=== PATIENT | male | born 1990 | race Caucasian/White ===

== ENCOUNTER → 2016-08-30 | Outpatient (CLI) | payer OTHER ==
--- NOTE | 2016-08-30 10:56 | DIAGNOSTIC IMAGING REPORT ---
BONY ORBITS 3 VIEWS CLINICAL HISTORY: MRI clearance. FINDINGS: 3 views of the bony orbits are obtained. No prior studies are available for comparison at the time of dictation. There is no radiodense/metallic foreign body identified in the region of the bony orbits. The bony orbits appear intact. The paranasal sinuses are clear as visualized. The mastoid air cells appear well-pneumatized. The imaged calvarium appears maintained. IMPRESSION: There is no radiodense/metallic foreign body identified in the region of the bony orbits. Electronically signed by: Wilbur Skinner M.D. 08/30/2016 10:54 AM Dictated Date/Time: 08/30/2016 10:53 AM
--- NOTE | 2016-08-30 12:05 | DIAGNOSTIC IMAGING REPORT ---
FLUOROSCOPIC GUIDED RIGHT SHOULDER GADOLINIUM ARTHROGRAM PRE-MRI CLINICAL HISTORY: Recurrent right shoulder dislocation. COMPARISON STUDY: None FINDINGS: A timeout was performed. The risks of the procedure were explained the patient informed consent was obtained. The patient was prepped and draped in a sterile fashion. The skin was anesthetized 1% lidocaine. 18 seconds of fluoroscopic time was utilized. A single fluoroscopic spot image was acquired. Under fluoroscopic guidance, a 22-gauge spinal needle was advanced into the joint space. A mixture of Optiray 300 and gadolinium was instilled into the joint. A single fluoroscopic spot image documents intra-articular location of the contrast. The patient since the MRI suite for further evaluation IMPRESSION: Successful fluoroscopically guided Optiray 300 and gadolinium injection into the joint space of the right shoulder. Electronically signed by: Major Ardon M.D. 08/30/2016 12:03 PM Dictated Date/Time: 08/30/2016 12:02 PM
--- NOTE | 2016-08-30 12:52 | DIAGNOSTIC IMAGING REPORT ---
MRI ARTHROGRAM OF THE RIGHT SHOULDER CLINICAL HISTORY: Right shoulder dislocations. COMPARISON STUDY: No previous studies for comparison. TECHNIQUE: Following a fluoroscopically guided right shoulder arthrogram and utilizing a 1.5 Sylvia magnet, multiplanar, multiecho imaging of the right shoulder was performed. FINDINGS: Alignment of the right shoulder is anatomic. There is no marrow replacement or significant marrow edema. There is mild cystic change at the greater tuberosity. There is no full-thickness rotator cuff tear. This study is mildly compromised by artifact. The long head of biceps tendon is intact. The posterior superior labrum is slightly truncated. There may be linear signal abnormality with contrast within this portion of the labrum shown on coronal image 11 of 18. No mass or fluid collection shown adjacent to the right shoulder. No significant cartilage abnormality is present. IMPRESSION: 1. Truncated posterior superior labrum with possible associated tear. The findings are not definitive but raise the possibility of a labral tear. 2. No full-thickness cuff tear. 3. Intact long head of the biceps tendon. Electronically signed by: Mark Vasquez M.D. 08/30/2016 12:50 PM Dictated Date/Time: 08/30/2016 12:41 PM
== END | disposition home or self-care (01) ==
LOC: C.RADBC 10:19
PROVIDERS: ATTEND Orthopaedic Surgery
DX: M24.411 Recurrent dislocation, right shoulder (principal)

== ENCOUNTER → 2017-10-18 | Outpatient (CLI) | payer OTHER ==
[~2017-10-18] MED LIST: GADAVIST IV PRN
--- NOTE | 2017-10-18 11:01 | DIAGNOSTIC IMAGING REPORT ---
FLUOROSCOPICALLY GUIDED RIGHT SHOULDER ARTHROGRAM PRIOR TO MRI CLINICAL HISTORY: Right shoulder pain. FLUOROSCOPY TIME: 11 seconds. PROCEDURE: The procedure, risks and benefits were discussed with the patient and informed written consent was obtained. The procedure was performed by Dr. Vasquez following a timeout. Skin overlying the right shoulder was prepped and draped in sterile fashion and local anesthesia was achieved with 1% lidocaine. Under intermittent fluoroscopic guidance, a 2 1/2 inch 22-gauge needle was directed into the right glenohumeral joint. Positioning within the joint space was confirmed with injection of a small amount of contrast. At this time, 12 cc of a mixture of 0.05 cc of gadolinium, 10 cc of Optiray 300 cc and 10 cc of normal saline was injected into the right shoulder joint. The needle was removed. The patient tolerated the procedure well and no immediate complications were evident. Patient was transported to MRI. IMPRESSION: Fluoroscopically guided right shoulder arthrogram prior to MRI. Electronically signed by: Mark Vasquez M.D. 10/18/2017 10:59 AM Dictated Date/Time: 10/18/2017 10:58 AM
--- NOTE | 2017-10-18 11:34 | DIAGNOSTIC IMAGING REPORT ---
R UPPER EXT JOINT WITH CLINICAL HISTORY: SHOULDER PAIN postoperative pain TECHNIQUE: Multi axial MRI acquisition post shoulder arthrography. COMPARISON STUDY: 08/30/2016 FINDINGS: Signal characteristics of the osseous structures are unremarkable. No significant bone marrow replacing process. Findings consistent with operative repair of the glenoid labrum. No evidence for recurrent tear. Articular services appear intact. Structures the rotator cuff are intact. No evidence for rotator cuff tear or significant tendinopathy. Biceps tendon is intact. IMPRESSION: 1. Findings consistent with prior or interval labral repair. 2. No current significant acute pathology. 3. Rotator cuff is intact The above report was generated using voice recognition software. It may contain grammatical, syntax or spelling errors. Electronically signed by: Joon Clarke M.D. 10/18/2017 11:33 AM Dictated Date/Time: 10/18/2017 11:15 AM
== END | disposition home or self-care (01) ==
LOC: C.MRIBC 10:11
PROVIDERS: ATTEND Orthopaedic Surgery
DX: M25.511 Pain in right shoulder (principal)

== ENCOUNTER → 2017-11-22 | Day surgery (SDC) | payer OTHER ==
[2017-10-30 15:19] VITALS: Ht 188 cm; Wt 70.5 kg
[~2017-11-22] VITALS: Ht 188 cm; Wt 70.5 kg
[~2017-11-22] MED LIST changes: +ATROPINE SULFATE 0.1 MG/ML 5ML SYR IV PRN; +BUPIVACAINE 0.25% 30 ML VIAL ONE; +CEFAZOLIN 2000MG IV PUSH 15 ML IV SCH; +DEXAMETHASONE SOD INJ 4 MG/ML VIAL ONE; +EpHEDrine SULFATE INJ 50 MG/ML AMP IV PRN; +EpINEphrine INJ 1MG/ML AMP 1 MG/ML AMP ONE; +FENTANYL CITRATE INJ 50 MCG/1 ML 2 ML VIAL ONE; -GADAVIST IV PRN; +KETO10TA PO; +KETOROLAC TROMETHAMINE 30 MG/ML VIAL IV. PRN; +LACTATED RINGER'S 1000ML 1,000 ML IV SCH; +LIDOCAINE HCL 2% 2 ML VIAL (20MG/ML) ONE; +MIDAZOLAM HCL 1 MG/ML 2ML VIAL ONE; +ONDANSETRON INJ 2 MG/ML 2 ML VIAL IV PRN; +ONDANSETRON INJ 2 MG/ML 2 ML VIAL ONE; +OXYC-57 PO; +OXYCODONE/ACETAMINOPHEN 5-325 TAB PO PRN; +PROPOFOL IV EMULSION 10 MG/ML 20 ML VIAL IV ONE; +ROPIVACAINE 0.5% 5 MG/ML 30 ML VIAL ONE; +SODIUM CHLORIDE 0.9% 1000ML 1,000 ML IV SCH
--- NOTE | 2017-11-22 13:18 | History & Physical Bridge Note ---
H&P Re-Evaluation Bridge Note: I have examined the patient, reviewed the History & Physical and in the interval since the performance of the History & Physical I have noted the following changes of clinical significance: No changes noted
--- NOTE | 2017-11-22 15:34 | [facility] Post Operative Brief Note ---
Immediate Operative Summary Operative Date Nov 22, 2017. Pre-Operative Diagnosis Joint Instability Right Shoulder Post-Operative Diagnosis Same Procedure(s) Performed Right Shoulder Open Latarjet Procedure Surgeon Dr. Baldwin Tabular Typist Surgeon(s) Frantz Weiner PA-C Estimated Blood Loss 50 mL Findings Consistent with Post-Op Diagnosis Specimens None Anesthesia Type General Regional Complication(s) none Disposition Disposition: Recovery Room / PACU
--- NOTE | 2017-11-22 16:01 | Discharge Instructions-SurgCtr ---
Discharge Instructions Date of Service Nov 22, 2017. Visit Reason for Visit: Right Shoulder Unstable Joint, Pain Discharge Discharge Diagnosis / Problem: SAME ABOVE Discharge Goals Goal(s): Decrease discomfort, Improve function Activity Recommendations Activity Limitations: as noted below Lifting Limitations: until after follow-up appointment Exercise/Sports Limitations: until after follow-up appointment Shower/Bathe: tomorrow Anesthesia . Post Anesthesia Instructions: If you have had General Anesthesia or IV Sedation: * Do not drive today. * Resume driving when surgeon permits. * Do not make important decisions or sign legal documents today. * Call surgeon for: 1. Temperature elevations greater than 101 degrees F. 2. Uncontrollable pain. 3. Excessive bleeding. 4. Persistent nausea and vomiting. 5. Medication intolerance (nausea, vomiting or rash). * For nausea and vomiting use only clear liquids such as: tea, soda, bouillon until nausea subsides, then gradually increase diet as tolerated. * If you have any concerns or questions, call your surgeon's office. If physician is unavailable and it is an emergency, call 911 or go to the nearest emergency room. . Instructions / Follow-Up Instructions / Follow-Up MEDICATIONS: * Resume previous medications unless instructed otherwise by your surgeon. * Always take pain medication on a full stomach or with food to avoid upset stomach. * Do not drink alcohol or drive while taking narcotics. * Ibuprofen or Tylenol may be taken if narcotic not needed. SPECIAL CARE INSTRUCTIONS: __ None _X_ Keep extremity elevated and iced x 48 hours; apply ice 20-30 minutes 8-10 times/day. May remove at night. _X_ Sling (MAY REMOVE AFTER 48 HOURS ONLY TO SHOWER.) _X_24 hrs/day __ Remove at night __ Shoulder Immobilizer __ 24 hrs/day __ Remove at night _X_ Dressing __ Maintain until seen in office, may shower with plastic over site _X_ Remove dressings in 24-48 hours and then may shower _X_ Cover incisions with band-aids after showering __ Do not remove steri-strips Call physician if chills or temperature rises above 102 degrees or pain unrelieved by prescribed pain medications at . . Diet Recommendations Home Diet: no limitations Fluid Restriction: None Procedures Procedures Performed: Right Shoulder Open Latarjet Procedure Pending Studies Studies pending at discharge: no Work Instructions Return To Work: after follow-up Lifting Limitations: NO LIFTING WITH RIGHT ARM Medical Emergencies . Who to Call and When: Medical Emergencies: If at any time you feel your situation is an emergency, please call 911 immediately. . Non-Emergent Contact Non-Emergency issues call your: Primary Care Provider Call Non-Emergent contact if: you have a fever, temperature is above 101.5 . . "Provider Documentation" section prepared by Jayesh Weiner. .
[2017-11-22] MEDS: FENTANYL CITRATE INJ 50 MCG/1 ML 2 ML VIAL IV PRN ×4 (16:12→16:27)
[2017-11-22 16:33] VITALS: TEMP 36.7
[2017-11-22 17:15] VITALS: BP 115/74; PULSE 65; O2SAT 97
--- NOTE | 2017-11-22 17:18 | Anesthesia Progress Nt - [facility] ---
Anesthesia Post Op Note Date & Time Nov 22, 2017 at 17:17 Vital Signs Pain Intensity: 0 Vital Signs Past 12 Hours Date Time Temp Pulse Resp B/P (MAP) Pulse Ox O2 Delivery O2 Flow Rate FiO2 11/22/17 17:15 65 16 115/74 (88) 97 Room Air 11/22/17 16:33 36.7 50 16 118/79 (92) 97 Room Air 11/22/17 16:27 74 20 11/22/17 16:27 75 20 96 11/22/17 16:26 113/72 11/22/17 16:25 36.8 95 Room Air 11/22/17 16:22 54 10 11/22/17 16:22 56 10 96 11/22/17 16:21 118/73 11/22/17 16:17 55 14 11/22/17 16:17 55 14 95 11/22/17 16:16 117/75 11/22/17 16:12 58 13 96 11/22/17 16:12 58 13 11/22/17 16:11 121/71 11/22/17 16:07 57 14 96 11/22/17 16:07 56 14 11/22/17 16:06 118/77 11/22/17 16:02 64 19 11/22/17 16:02 65 19 99 11/22/17 16:01 138/89 11/22/17 15:59 53 11 99 11/22/17 15:59 53 11 11/22/17 15:56 115/69 11/22/17 15:54 58 14 11/22/17 15:54 59 14 98 11/22/17 15:53 123/72 11/22/17 15:53 36.6 66 16 123/72 98 Mask 6 11/22/17 13:59 69 6 99 11/22/17 13:59 69 11/22/17 13:58 62 17 99 11/22/17 13:58 62 18 13:56 108/58 11/22/17 13:53 65 12 99 18 13:53 64 11/22/17 13:51 114/67 11/22/17 13:48 62 11 99 18 13:48 61 11/22/17 13:45 105/66 11/22/17 13:43 65 0 98 11/22/17 13:43 69 4/5/18 13:38 55 11/22/17 13:38 55 0 97 11/22/17 13:33 60 11/22/17 13:33 60 0 96 11/22/17 13:28 59 11/22/17 13:28 57 0 96 11/22/17 13:23 62 0 96 11/22/17 13:23 65 11/22/17 13:18 72 0 97 11/22/17 13:18 68 11/22/17 13:13 54 11/22/17 13:13 54 0 96 11/22/17 11:58 36.8 63 16 106/67 (80) 97 Room Air Notes Mental Status: alert / awake / arousable, participated in evaluation Pt Amnestic to Procedure: Yes Nausea / Vomiting: adequately controlled Pain: adequately controlled Airway Patency, RR, SpO2: stable & adequate BP & HR: stable & adequate Hydration State: stable & adequate Anesthetic Complications: no major complications apparent
--- NOTE | 2017-11-22 19:08 | OPERATIVE REPORT ---
DATE OF OPERATION: 11/22/2017 PREOPERATIVE DIAGNOSIS: Recurrent dislocations of the right shoulder. POSTOPERATIVE DIAGNOSIS: Same. PROCEDURE: Right shoulder Latarjet procedure. SURGEON: Dr. Pawel Baldwin. T[employer] PROTE[employer] SPECIALIST: Austyn Weiner PA-C, whose assistance was necessary for retraction and closure. ANESTHESIA: General with a right interscalene nerve block. COMPLICATIONS: None. CONDITION: Stable to PACU. INDICATIONS: Rohit is a pleasant 27-year-old male who we did an arthroscopic capsular plication about a year ago. Initially, he did well, but unfortunately he went on to fail the repair. He has had recurrent dislocations. His shoulder has been bothering him at work. After extensive conversations in the office, he elected to proceed with a Latarjet procedure of his right shoulder. DESCRIPTION OF PROCEDURE: On 11/22/2017, he arrived at [facility] for the above procedure. He was seen in the preoperative holding are and the operative extremity was identified and signed. He was given a preoperative antibiotic and a right interscalene nerve block. He was taken back to the operating room, laid on table in the supine position and put under general anesthesia. He was put into the beach chair position. The right shoulder was prepped and draped in sterile fashion. Time-out was done and the patient's operative extremity was properly identified. An axillary approach was used. Dissection was taken down through the deltopectoral interval and the conjoined tendon was exposed. The coracoid was also exposed. Time was spent releasing the coracoacromial ligament as well as the pectoralis minor. The coracoid was then resected directly at its base. The graft was then pulled out of the wound. The graft was then prepared with an oscillating saw and drill holes were made. The graft was then placed back into the shoulder and tension was made with the exposure to the glenoid. A subscapularis split was used. The subscapularis was split in midsubstance. The capsule was also incised. The anterior glenoid was easily visualized. The anterior glenoid was then prepared with an oval bur. This got the anterior glenoid back to flat bleeding bone. The prepared coracoid graft was then placed on the anterior aspect of the shoulder using the [employer] Latarjet system. Two guide pins were placed to hold the graft. The anterior cortex of the glenoid was then drilled and a 36-mm screw was placed proximally and a 34-mm screw was placed distally. I was able to get an excellent bite with each screw. The graft was not proud. It felt very smooth. The joint was then irrigated and retractors were removed. The subscapularis was then closed with 0 Vicryl suture. The wound was once again irrigated and skin was closed with 2-0 Vicryl, 3-0 V-Loc suture and dany. He was then placed in a soft compressive dressing, extubated, transferred to a [facility] and taken to the postanesthesia care unit in stable condition. He tolerated the procedure well. I attest to the content of the Intraoperative Record and any orders documented therein. Any exception s are noted below.
== END | disposition home or self-care (01) ==
LOC: X.SURG 11:47
PROVIDERS: ATTEND Orthopaedic Surgery
DX: M24.411 Recurrent dislocation, right shoulder (principal); Z79.899 Other long term (current) drug therapy; Z86.73 Personal history of transient ischemic attack (TIA), and cerebral infarction without residual deficits